=== PATIENT | female | born 1985 | race Caucasian/White ===

== ENCOUNTER → 2017-12-04 | Outpatient (CLI) | payer OTHER, MEDICAID ==
[~2017-12-04] MED LIST: ACHD5005 PO; DOCU100C37 PO; DOCU100T7 PO; FERR-47 PO; FERR-57 PO; FERR325C PO; HYDR-3714 PO; HYDR-707 PO; IBP600T1 PO; IBUP-1773 PO; OXYC-471 PO; PREN-115 PO; PRM25T PO; YAZ
--- NOTE | 2017-12-04 12:13 | Diagnostic Imaging Report ---
INDICATION: OB ultrasound TECHNIQUE: Multiple real-time grayscale images were obtained over the gravid uterus. COMPARISON: None FINDINGS: survey There are no prior studies available for comparison. There is a single live fetus in cephalic presentation. heart motion was noted at rate of 149 BPM was recorded. There are no abnormalities identified. However the spine was not well visualized due to positioning. The placenta is anterior and there is no previa. The amount of amniotic fluid volume is within normal limits. The growth parameters are fairly uniform. The cervix was identified and measures 4.2 cm in length. Impression. 1. There is a single live fetus approximately 20 weeks 5 days gestation plus or -1.5 weeks. The EDC is 04/18/2018. 2. There are no abnormalities identified but the spine was not optimally visualized. If further study is desired, a short-term (4-6 week) followup ultrasound exam should be obtained. 3. The growth parameters are fairly uniform. Biometrical measurements are as follows: Biparietal 4.8 cm, age 20 weeks 5 days. Head circumference 18.0 cm, age 20 weeks 4 days. Abdominal circumference 16.0 cm, age 21 weeks 1 days. Femur length 3.2 cm, age 20 weeks 0 days. Sonographic estimate age: 20 weeks 5 days. Sonographic estimated date of delivery: 04/18/18. Estimated Weight: 363 gm (+/- 53 gm). LMP percentile: 62%. heart rate: 149 beats per minute. number: 1 of 1. IMPRESSION: Dictated by: Dictated on workstation # [id number]
== END ==
LOC: RAD 09:49
PROVIDERS: ATTEND Obstetrics & Gynecology
DX: Z36.89 Encounter for other specified antenatal screening (principal); Z3A.20 20 weeks gestation of pregnancy
CPT/HCPCS: 76805

== ENCOUNTER → 2018-02-12 | Outpatient (CLI) | payer OTHER, MEDICAID ==
--- NOTE | 2018-02-12 12:34 | Diagnostic Imaging Report ---
INDICATION: Evaluate anatomy TECHNIQUE: Multiple real-time grayscale images were obtained over the gravid uterus. COMPARISON: 12/04/2017 FINDINGS: The prior OB ultrasound exam of 12/04/2017 failed to show any sign of abnormality. However the spine was not well visualized. On this exam, the fetus is again visualized. The fetus is in cephalic presentation. heart motion was noted at a rate 116 bpm was recorded. The spine was well imaged and appears to be within normal limits. No other abnormality is identified. The growth perimeters were not obtained for this exam. The amniotic fluid volume is within normal limits. The placenta is anterior and there is no previa. IMPRESSION: 1. There is a single live fetus approximately 30 weeks gestation plus or minus one week. EDC remains 04/18/2018. 2. There are no abnormalities identified. In particular, the spine appears to be within normal limits. Biometrical measurements are as follows: Biparietal cm, age weeks days. Head circumference cm, age weeks days. Abdominal circumference cm, age weeks days. Femur length cm, age weeks days. Sonographic estimate age: weeks days. Sonographic estimated date of delivery: . Estimated Weight: gm (+/- gm). LMP percentile: %. heart rate: beats per minute. number: of . Dictated by: Dictated on workstation # [id number]
== END ==
LOC: RAD 10:29
PROVIDERS: ATTEND Obstetrics & Gynecology
DX: Z36.2 Encounter for other antenatal screening follow-up (principal); Z3A.30 30 weeks gestation of pregnancy
CPT/HCPCS: 76816

== ENCOUNTER 2018-04-14 11:00 | Outpatient (CLI) | payer OTHER, MEDICAID ==
[~2018-04-14] VITALS: Ht 162.6 cm; Wt 86.8 kg
[2018-04-14] MEDS ORDERED: PREN-102 PO (11:35)
== END 2018-04-14 12:01 | disposition home or self-care (01) ==
LOC: PREOP 11:00
PROVIDERS: ATTEND Obstetrics & Gynecology
DX: Z01.818 Encounter for other preprocedural examination (principal)